=== PATIENT | female | born 1955 | race Caucasian/White ===

== ENCOUNTER 2016-05-16 15:00 | Outpatient (CLI) | payer BC ==
[~2016-05-16] VITALS: Ht 162.6 cm; Wt 104.0 kg
--- OUTSIDE RECORDS SUMMARY | 2016-05-16 15:05 | XMS REPORT ---
Author Ivette Vidales Organization [facility] Address [address] [place] [id number] Care Team Providers Care Labor Employment Associate Name Role Phone Ivette Kay PCP Unavailable Allergies and Adverse Reactions Name Reaction Notes NO KNOWN DRUG ALLERGIES Plan of Treatment Planned Activity Comments Planned Date Planned Time Plan/Goal COMPLETE CBC W/AUTO DIFF WBC 02/19/2015 12:00 AM COMPREHEN METABOLIC PANEL 02/19/2015 12:00 AM LIPID PANEL 02/19/2015 12:00 AM CYTOPATH TBS C/V MANUAL 10/02/2012 12:00 AM MAMMOGRAM BOTH BREASTS 10/02/2012 12:00 AM X-RAY EXAM OF ANKLE 09/18/2013 12:00 AM ELECTROCARDIOGRAM COMPLETE 01/09/2014 12:00 AM Medications Active Name Start Date Estimated Completion Date SIG Comments naproxen 500 mg oral tablet take 1 tablet (500 mg) by oral route 2 times per day with food for 30 days Celebrex 200 mg oral capsule citalopram 20 mg oral tablet 04/16/2014 TAKE 1 TABLET BY MOUTH ONCE DAILY citalopram 20 mg oral tablet 09/05/2014 TAKE 1 TABLET BY MOUTH ONCE DAILY [place] 5-325 mg oral tablet Protonix 40 mg oral tablet,delayed release (DR/EC) take 1 tablet (40 mg ) by oral route once daily gabapentin 300 mg oral capsule take 1 capsule by oral route once a day ( at bedtime) bupropion HCl 300 mg oral tablet extended release 24 hr 02/19/2015 TAKE 1 TABLET BY MOUTH ONCE DAILY citalopram 20 mg oral tablet 02/19/2015 02/14/2016 TAKE 1 TABLET BY MOUTH ONCE DAILY lisinopril-hydrochlorothiazide 10-12.5 mg oral tablet 02/19/2015 02/14/2016 TAKE 1 TABLET BY MOUTH EVERY DAY Aspir-81 81 mg oral tablet,delayed release (DR/EC) take 1 tablet (81 mg ) by oral route once daily Imitrex 50 mg oral tablet 05/06/2015 take 1 tablet (50 mg) by oral route once with fluids as early as possible after the onset of a migraine attack;may repeat after 2 hours if headache returns, not to exceed 200mg in 24hrs propranolol 80 mg oral tablet take 1 tablet (80 mg) by oral route 2 times per day Name Start Date Expiration Date SIG Comments 16.2-0.1037 -0.0194 mg oral tablet 04/06/2011 07/05/2011 take 1 tablet by oral route 3 times a day as needed for 30 days Vesicare 10 mg oral tablet 04/11/2011 08/09/2011 take 1 tablet (10 mg) by oral route once daily for 30 days lisinopril-hydrochlorothiazide 10-12.5 mg oral tablet 10/02/2012 09/27/2013 take 1 tablet by oral route once daily for 30 days phentermine 37.5 mg oral tablet 01/10/2013 02/09/2013 take 1 tablet (37.5 mg ) by oral route once daily before breakfast for 30 days valacyclovir 1 gram oral tablet 08/16/2013 08/23/2013 take 1 tablet (1,000 mg ) by oral route 3 times per day for 7 days nystatin-triamcinolone 100,000-0.1 unit/g-% topical cream 11/21/20132013 apply to the affected area(s) by topical route 2 times per day in the morning and evening for 10 days Diflucan 150 mg oral tablet 11/21/2013 11/22/2013 take 1 tablet (150 mg) by oral route once for 1 day Wellbutrin XL 300 mg oral tablet extended release 24 hr 01/09/2014 01/04/2015 take 1 tablet (300 mg) by oral route once daily for 90 days Discontinued Name Start Date Discontinued Date SIG Comments gentamicin 0.3 % ophthalmic drops 03/31/2011 10/02/2012 instill 1 drop into affected eye(s) by ophthalmic route every 4 hours Bentyl 10 mg oral capsule 04/06/2011 04/06/2011 take 1 capsule (10 mg) by oral route 4 times per day for 30 days Flexeril 10 mg oral tablet 11/27/2012 02/19/2015 take 1 tablet by mouth daily at HS Viibryd 40 mg oral tablet 11/28/2012 01/09/2014 take 1 tablet (40 mg) by oral route once daily with food Celexa 20 mg oral tablet 01/09/2014 02/19/2015 take 1 tablet (20 mg) by oral route once daily Xanax 0.5 mg oral tablet 03/05/2014 02/19/2015 take 1 tablet by mouth daily as needed nystatin-triamcinolone 100,000-0.1 unit/g-% topical cream 07/24/20142014 apply to the affected area(s) by topical route 2 times per day in the morning and evening Problem List Description Status Onset Arthritis unspecified Active Mitral valve prolapse Active Hypertension Active Anxiety Active 01/09/2014 Osteoarthritis Active 01/09/2014 Depression Active 01/09/2014 Vital Signs Date Time BP-Sys(mm[Hg] BP-Inga(mm[Hg]) HR(bpm) RR(rpm) Temp WT HT HC BMI BSA BMI Percentile O2 Sat(%) 05/06/2015 10:17:00 AM 122 mmHg 70 mmHg 50 bpm 18 rpm 97.4 F 243.125 lbs 63 in 43.07 kg/m2 2.21 m2 94 % 02/19/2015 3:18:00 PM 124 mmHg 68 mmHg 62 bpm 18 rpm 97.5 F 242 lbs 63 in 42.8679 kg/m 2.2089 m 97 % 01/09/2014 3:13:00 PM 122 mmHg 64 mmHg 77 bpm 18 rpm 98 F 225.5 lbs 63 in 39.95 kg/m2 2.13 m2 98 % 09/24/2013 2:11:00 PM 104 mmHg 78 mmHg 90 bpm 18 rpm 97.6 F 222.25 lbs 63 in 39.3694 kg/m 2.1169 m 94 % 09/20/2013 2:46:00 PM 110 mmHg 70 mmHg 85 bpm 16 rpm 97.5 F 220 lbs 63 in 38.97 kg/m2 2.11 m2 98 % 09/18/2013 5:21:00 PM 130 mmHg 88 mmHg 85 bpm 18 rpm 98 F 222.375 lbs 63 in 39.3916 kg/m 2.1174 m 99 % 08/06/2013 3:32:00 PM 122 mmHg 76 mmHg 76 bpm 22 rpm 97.1 F 226.187 lbs 64 in 38.82 kg/m2 2.15 m2 94 % 01/10/2013 4:19:00 PM 130 mmHg 68 mmHg 91 bpm 20 rpm 97.5 F 228 lbs 64 in 39.1357 kg/m 2.161 m 96 % 11/27/2012 3:08:00 PM 132 mmHg 70 mmHg 89 bpm 18 rpm 98.2 F 223.187 lbs 64 in 38.31 kg/m2 2.14 m2 96 % 10/02/2012 3:29:00 PM 134 mmHg 68 mmHg 77 bpm 18 rpm 97.4 F 232.125 lbs 64 in 39.8438 kg/m 2.1805 m 97 % 04/06/2011 8:27:00 AM 132 mmHg 68 mmHg 66 bpm 18 rpm 97.7 F 232.187 lbs 64 in 39.85 kg/m2 2.18 m2 03/31/2011 1:49:00 PM 138 mmHg 72 mmHg 68 bpm 18 rpm 98.1 F 232.5 lbs 64 in 39.9081 kg/m 2.1822 m Social History Name Description Comments Tobacco Former smoker 1987 Alcohol Use - Rare Grown Children 2 Lives with spouse History of Procedures Date Ordered Description Order Status 02/19/2015 12:00 AM MAMMOGRAM BOTH BREASTS Returned 03/31/2011 12:00 AM COMPLETE CBC W/AUTO DIFF WBC Reviewed 03/31/2011 12:00 AM COMPREHEN METABOLIC PANEL Reviewed 03/31/2011 12:00 AM LIPID PANEL Reviewed 03/31/2011 12:00 AM ASSAY THYROID STIM HORMONE Reviewed 03/31/2011 12:00 AM ASSAY OF GONADOTROPIN (FSH) Reviewed 10/02/2012 12:00 AM COMPLETE CBC W/AUTO DIFF WBC Returned 10/02/2012 12:00 AM COMPREHEN METABOLIC PANEL Returned 10/02/2012 12:00 AM LIPID PANEL Returned 10/02/2012 12:00 AM MAMMOGRAM SCREENING Returned 09/24/2013 12:00 AM MRI LOWER EXTREMITY W/O DYE Returned 01/09/2014 12:00 AM COMPLETE CBC W/AUTO DIFF WBC Returned 01/09/2014 12:00 AM COMPREHEN METABOLIC PANEL Returned 01/09/2014 12:00 AM LIPID PANEL Returned 01/09/2014 12:00 AM ASSAY THYROID STIM HORMONE Returned 01/09/2014 12:00 AM ASSAY OF TROPONIN QUANT Returned 01/09/2014 12:00 AM ASSAY IGA/IGD/IGG/IGM EACH Returned 01/09/2014 12:00 AM IMMUNOASSAY NONANTIBODY Returned 01/09/2014 12:00 AM MAMMOGRAM BOTH BREASTS Returned 01/09/2014 12:00 AM HT MUSCLE IMAGE PLANAR SING Returned Results Summary Data and Description Results 04/01/2011 8:15 AM FSH 37.30 mIU/mLTSH 1.480 uIU/mLTRIGLYCERIDES 118.0 mg/ dLCHOLESTEROL 173.0 mg/dLHDL 43.0 mg/dLLDL (CALC) 106.0 mg/dLGLUCOSE 103.0 mg/ dLSODIUM 141.0 mmol/LPOTASSIUM 4.40 mmol/LCHLORIDE 108.0 mmol/LCO2 27.0 mmol/ LBUN 24.0 mg/dLCREATININE 0.70 mg/dLSGOT/AST 13.0 IU/LSGPT/ALT 17.0 IU/LALK PHOS 94.0 IU/LTOTAL PROTEIN 6.80 g/dLALBUMIN 4.0 g/dLTOTAL BILI 0.40 mg/ dLCALCIUM 9.10 mg/dLeGFR >60 mL/min/1.73 m2WBC 6.1 RBC 4.53 HGB 12.80 g/dLHCT 40.80 %MCV 90.0 fLMCH 28.30 pgMCHC 31.40 g/dLRDW CV 14.60 %MPV 10.60 fLPLT 245 % NEUT 49.10 %%LYMP 37.30 %%MONO 7.60 %%EOS 5.0 %%BASO 1.0 %#NEUT 2.98 #LYMP 2.26 #MONO 0.46 #EOS 0.30 #BASO 0.06 10/12/2012 7:25 AM GLUCOSE 111.0 mg/dLSODIUM 141.0 mmol/LPOTASSIUM 4.30 mmol/ LCHLORIDE 105.0 mmol/LCO2 28.0 mmol/LBUN 15.0 mg/dLCREATININE 0.80 mg/dLSGOT/ AST 15.0 IU/LSGPT/ALT 21.0 IU/LALK PHOS 92.0 IU/LTOTAL PROTEIN 7.20 g/dLALBUMIN 3.80 g/dLTOTAL BILI 0.40 mg/dLCALCIUM 9.70 mg/dLeGFR 60 TRIGLYCERIDES 88.0 mg/ dLCHOLESTEROL 172.0 mg/dLHDL 47.0 mg/dLLDL (CALC) 107.0 mg/dLWBC 7.2 RBC 4.41 HGB 12.70 g/dLHCT 39.30 %MCV 89.0 fLMCH 28.80 pgMCHC 32.30 g/dLRDW CV 14.90 % MPV 10.0 fLPLT 235 %NEUT 51.90 %%LYMP 37.70 %%MONO 6.50 %%EOS 3.30 %%BASO 0.60 % #NEUT 3.75 #LYMP 2.72 #MONO 0.47 #EOS 0.24 #BASO 0.04 01/10/2014 7:55 AM WBC 6.5 RBC 4.52 HGB 13.0 g/dLHCT 40.80 %MCV 90.0 fLMCH 28.80 pgMCHC 31.90 g/dLRDW CV 14.40 %MPV 10.20 fLPLT 249 %NEUT 54.20 %%LYMP 34.30 %%MONO 8.0 %%EOS 2.90 %%BASO 0.60 %#NEUT 3.54 #LYMP 2.24 #MONO 0.52 #EOS 0.19 #BASO 0.04 GLUCOSE 100.0 mg/dLSODIUM 141.0 mmol/LPOTASSIUM 4.20 mmol/ LCHLORIDE 106.0 mmol/LCO2 25.0 mmol/LBUN 15.0 mg/dLCREATININE 0.80 mg/dLSGOT/ AST 15.0 IU/LSGPT/ALT 20.0 IU/LALK PHOS 86.0 IU/LTOTAL PROTEIN 7.10 g/dLALBUMIN 4.0 g/dLTOTAL BILI 0.50 mg/dLCALCIUM 9.30 mg/dLeGFR 60 TRIGLYCERIDES 60.0 mg/ dLCHOLESTEROL 169.0 mg/dLHDL 49.0 mg/dLLDL (CALC) 108.0 mg/dLTROPONIN-I AD < 0.04 ng/mLTSH 1.530 uIU/mLDeamidated Gliadin Abs,IgA 9 UnitsDeamidated Gliadin Abs,IgG 5 Unitst-Transglutaminase (tTG)IgA <2 U/outbound sales advisor-Transglutaminase (tTG)IgG 2.0 U/mLEndomysial Antibody IgA Negative Immunoglobulin A, Qn,Serum 201.0 mg/dL 04/20/2015 10:45 AM GLUCOSE 103.0 mg/dLSODIUM 142.0 mmol/LPOTASSIUM 4.30 mmol/ LCHLORIDE 107.0 mmol/LCO2 27.0 mmol/LBUN 18.0 mg/dLCREATININE 0.80 mg/dLSGOT/ AST 16.0 IU/LSGPT/ALT 22.0 IU/LALK PHOS 84.0 IU/LTOTAL PROTEIN 6.60 g/dLALBUMIN 4.10 g/dLTOTAL BILI 0.30 mg/dLCALCIUM 9.50 mg/dLeGFR >60 mL/min/1.73mWBC 7.1 RBC 4.37 HGB 12.60 g/dLHCT 40.40 %MCV 92.0 fLMCH 28.80 pgMCHC 31.20 g/dLRDW CV 14.50 %MPV 10.50 fLPLT 258 %NEUT 59.50 %%LYMP 29.20 %%MONO 7.50 %%EOS 3.10 %% BASO 0.70 %#NEUT 4.20 #LYMP 2.06 #MONO 0.53 #EOS 0.22 #BASO 0.05 05/05/2015 12:45 PM GLUCOSE 97.0 mg/dLSODIUM 141.0 mmol/LPOTASSIUM 4.20 mmol/ LCHLORIDE 99.0 mmol/LCO2 32.0 mmol/LBUN 13.0 mg/dLCREATININE 0.70 mg/dLCALCIUM 9.50 mg/dLeGFR >60 mL/min/1.73m History Of Immunizations Not available. History of Past Illness Name Date of Onset Comments Hypertension Mitral valve prolapse Arthritis unspecified Anxiety 01/09/2014 Osteoarthritis 01/09/2014 Depression 01/09/2014 Hypertension Mar 31 2011 1:51PM Osteoarthritis Mar 31 2011 1:51PM Depression Mar 31 2011 1:51PM Overactive bladder Mar 31 2011 1:51PM Fatigue Mar 31 2011 1:51PM Left Conjunctivitis Mar 31 2011 1:51PM Screening Examination for Breast Cancer Apr 06 2011 8:28AM Routine gynecological examination Oct 02 2012 3:32PM Hypertension Oct 02 2012 3:32PM Screening Mammogram Oct 02 2012 3:56PM Body Mass Index [BMI]; body mass index between 30-39, adult; body mass index 38.0-38.9, adult Nov 27 2012 3:11PM Anxiety Disorder Nov 27 2012 3:11PM Myalgia Nov 27 2012 3:11PM Bilateral knee pain Jan 10 2013 4:21PM Anxiety Aug 06 2013 3:40PM Shingles (excluding eye) Aug 06 2013 3:40PM Ankle pain Sep 18 2013 4:44PM Ankle pain, right Sep 24 2013 2:17PM Ankle injury, right, initial encounter Sep 18 2013 5:25PM Ankle injury, left, subsequent encounter Sep 20 2013 2:49PM Ankle injury, left, subsequent encounter Sep 24 2013 2:17PM Chest pain Jan 09 2014 3:16PM Hypertension Jan 09 2014 3:16PM Diarrhea Jan 09 2014 3:16PM Anxiety Jan 09 2014 3:16PM Fatigue Jan 09 2014 3:16PM Osteoarthritis Jan 09 2014 3:16PM Depression Jan 09 2014 3:16PM Breast cancer screening Jan 09 2014 3:16PM Anxiety Feb 19 2015 3:21PM Depression Feb 19 2015 3:21PM Osteoarthritis Feb 19 2015 3:21PM Hypertension Feb 19 2015 3:21PM Screening for breast cancer Feb 19 2015 3:21PM Migraine without aura and without status migrainosus, not intractable May 06 2015 10:20AM Payers Insurance Name Company Name Plan Name Plan Number Policy Number Policy Group Number Start Date BCBS Bcbs [facility] [id number] Wednesday, 2008 [employer] [id number] N/A History of Encounters Visit Date Visit Type Provider 05/06/2015 Office visit Ivette Kay TOOL GRINDING TECHNICIAN 04/30/2015 [facility] Irene Rivera MD 02/19/2015 Office visit 02/19/2015 Office visit Ivette Kay TOOL GRINDING TECHNICIAN 01/10/2014 [facility] Becerra MD 01/09/2014 Office visit 01/09/2014 Office visit Ivette Kay TOOL GRINDING TECHNICIAN 09/24/2013 Office visit Eran Cheatham TOOL GRINDING TECHNICIAN 09/20/2013 Office visit Eran Cheatham TOOL GRINDING TECHNICIAN 09/18/2013 Office visit Eran Cheatham TOOL GRINDING TECHNICIAN 08/06/2013 Office visit Eran Cheatham TOOL GRINDING TECHNICIAN 08/06/2013 Voided Ivette Kay TOOL GRINDING TECHNICIAN 01/10/2013 Office visit Ivette Kay TOOL GRINDING TECHNICIAN 11/27/2012 Office visit Ivette Kay APRN 10/02/2012 Office visit Ivette Kay TOOL GRINDING TECHNICIAN 01/02/2012 [facility] Becerra MD 04/06/2011 Office visit Ivette Kay APRN 03/31/2011 Office visit Ivette Kay TOOL GRINDING TECHNICIAN
[2016-05-16] MEDS ORDERED: CITA20TA7 PO (15:13)
[2016-05-16] MEDS ORDERED: BUPR300T51 PO (15:13)
[2016-05-16] MEDS ORDERED: CELE200C PO (15:13)
[2016-05-16] MEDS ORDERED: GABA-488 PO (15:13)
[2016-05-16] MEDS ORDERED: ALPR0.5T7 PO (15:13)
[2016-05-16] MEDS ORDERED: HYDR-3812 PO (15:13)
[2016-05-16] MEDS ORDERED: PANT40TA3 PO (15:13)
[2016-05-16] MEDS ORDERED: LISI1TAB8 PO (15:13)
[2016-05-16 15:18] VITALS: BP 134/81
[2016-05-16 15:48] LABS: BASOPHILS % (AUTO) 0 % (0-10); EOSINOPHILS # (AUTO) 0.1 10^3/uL (0.0-0.3); EOSINOPHILS % (AUTO) 2 % (0-10); LYMPHOCYTES # (AUTO) 1.6 X 10^3 (1.0-4.0); LYMPHOCYTES % (AUTO) 23 % (12-44); MEAN CORPUSCULAR HEMOGLOBIN 29 PG (25-34); MEAN CORPUSCULAR HGB CONC 32 G/DL (32-36); MEAN CORPUSCULAR VOLUME 88 FL (80-99); MEAN PLATELET VOLUME 11.4 FL (7.4-10.4); MONOCYTES # (AUTO) 0.7 X 10^3 (0.0-1.0); MONOCYTES % (AUTO) 10 % (0-12); NEUTROPHILS # (AUTO) 4.3 X 10^3 (1.8-7.8); NEUTROPHILS % (AUTO) 65 % (42-75); PLATELET COUNT 200 10^3/uL (130-400); RED BLOOD COUNT 4.69 10^6/uL (4.35-5.85); RED CELL DISTRIBUTION WIDTH 14.7 % (10.0-14.5); WHITE BLOOD COUNT 6.7 10^3/uL (4.3-11.0)
== END 2016-05-16 16:00 | disposition home or self-care (01) ==
LOC: PREOP 15:00
PROVIDERS: ATTEND Surgery Pediatric Surgery
DX: Z01.812 Encounter for preprocedural laboratory examination (principal); Z11.2 Encounter for screening for other bacterial diseases; E66.01 Morbid (severe) obesity due to excess calories; Z68.39 Body mass index [BMI] 39.0-39.9, adult
CPT/HCPCS: 36415; 85025; 87081

== ENCOUNTER 2016-05-19 06:58 | Day surgery (SDC) | payer SELFPAY ==
[~2016-05-19] VITALS: Ht 162.6 cm; Wt 104.0 kg
[~2016-05-19 06:58] MED LIST: ALPR0.5T7 PO; BUPR300T51 PO; CELE200C PO; CITA20TA7 PO; GABA-488 PO; HYDR-3812 PO; LISI1TAB8 PO; PANT40TA3 PO
[2016-05-19] MEDS ORDERED: BUP/EPI 0.5% 1:200,000 (SENSORCAINE) 30 ML VIAL ONE (07:08)
[2016-05-19] MEDS: LACTATED RINGERS 1,000 ML IV PRN ×2 (07:27→09:27)
[2016-05-19] MEDS ORDERED: LIDOCAINE PF 2% 10 ML (XYLOCAINE) AMP ONE (07:29)
[2016-05-19] MEDS ORDERED: SEVOFLURANE (ULTANE) 15 ML INHAL SOLN ONE ×2 (07:29→09:57)
[2016-05-19] MEDS ORDERED: fentaNYL INJECTION 250 MCG/5 ML AMP ONE (07:29)
[2016-05-19] MEDS ORDERED: ROCURONIUM 50 MG/5 ML (ZEMURON) VIAL IV ONE (07:29)
[2016-05-19] MEDS ORDERED: proPOfol 200 MG/20 ML (DIPRIVAN) VIAL IV ONE (07:29)
[2016-05-19] MEDS ORDERED: DEXAMETHASONE PF 10 MG/ML (DECADRON) VIAL ONE (07:29)
[2016-05-19] MEDS ORDERED: CATHETER FLUSH 10 ML SYR IV PRN (07:30)
[2016-05-19] MEDS ORDERED: ceFAZolin 1,000 MG (ANCEF) VIAL ONE (07:30)
[2016-05-19] MEDS ORDERED: FAMOTIDINE 20MG/2ML IV (PEPCID) IV ONE (07:30)
[2016-05-19] MEDS ORDERED: ceFAZolin 1 GM/NS 50 ML IVPB IV ONE ×2 (07:30)
[2016-05-19] MEDS ORDERED: MIDAZOLAM 2 MG/2 ML (VERSED) VIAL IV ONE (07:30)
[2016-05-19] MEDS ORDERED: SCOPOLAMINE 1.5 MG (TRANSDERM-SCOP) PATCH TOP ONE (07:30)
[2016-05-19] MEDS ORDERED: ONDANSETRON 4 MG/2 ML (SDV) Z0FRAN IV PRN (07:30)
[2016-05-19] MEDS ORDERED: NS (IVPB) 50 ML ONE (07:31)
--- NOTE | 2016-05-19 07:47 | Progress Note-Pre Operative ---
Pre-Operative Progress Note H&P Reviewed The H&P was reviewed, patient examined and no changes noted. Date H&P Reviewed: May 19, 2016 Time H&P Reviewed: 07:40 Pre-Operative Diagnosis: Morbid obesity, Hypertension KATIE KENNEDY APRN May 19, 2016 7:47 am
[2016-05-19 07:55] VITALS: BP 136/83
[2016-05-19] MEDS ORDERED: MIDAZOLAM 2 MG/2 ML (VERSED) VIAL ONE (08:11)
[2016-05-19] MEDS ORDERED: LACTATED RINGERS 1,000 ML IV ONE (08:46)
[2016-05-19] MEDS ORDERED: NEOSTIGMINE (BLOXIVERZ ) 1 MG/1ML 10 ML VIAL ONE (09:48)
[2016-05-19] MEDS ORDERED: GLYCOPYRROLATE 0.2 MG/ML (ROBINUL) 2 ML VIAL ONE ×2 (09:48→09:52)
--- NOTE | 2016-05-19 10:04 | Progress Note-Post Operative ---
Post-Operative Progess Note Human Resources Office Assistant jen magallon [employer] Pre-Operative Diagnosis Morbid obesity, Hypertension Post-Operative Diagnosis same Post-Op Procedure Note Date of Procedure: May 19, 2016 Name of Procedure: laparoscopic gastric sleeve resection Anesthesia Type GET Estimated blood loss (mL): minimal Specimen(s) collected stomach PENNY CORDOVA MD May 19, 2016 10:04 am
[2016-05-19] MEDS ORDERED: metroNIDAZOLE 500MG/100ML IVPB 100 ML IV SCH (10:15)
[2016-05-19] MEDS ORDERED: oxyCODONE 20 MG/1 ML ORAL CONC (RoxiCODONE) CHARGE PER 1 ML PO PRN (10:15)
[2016-05-19] MEDS ORDERED: diphenhydrAMINE 25 MG TAB (BENADRYL) PO PRN (10:15)
[2016-05-19] MEDS ORDERED: diphenhydrAMINE 50 MG/ML INJ (BENADRYL) IVP PRN (10:15)
[2016-05-19] MEDS ORDERED: fentaNYL INJECTION 5,000 MCG in NS (IVPB) 0 ML IV SCH (10:15)
[2016-05-19] MEDS ORDERED: PROMETHAZINE INJ 25 MG/ML (PHENERGAN) AMP IVP PRN (10:30)
[2016-05-19] MEDS ORDERED: morphine INJ 10 MG/ML 1ML (SYR OR VIAL) IVP PRN (10:30)
[2016-05-19] MEDS: RT-ALBUTEROL SULF 2.5 MG/3 ML PRE-MIX VIAL INH SCH ×4 (10:30→21:30)
[2016-05-19] MEDS ORDERED: MEPERIDINE (DEMEROL) INJ 50 MG/ML IVP PRN (10:30)
[2016-05-19] MEDS ORDERED: HYDROmorphone (DILAUDID) 2 MG/ML VIAL IVP PRN (10:30)
[2016-05-19] MEDS ORDERED: PROMETHAZINE INJ 25 MG/ML (PHENERGAN) AMP ONE (10:53)
[2016-05-19 11:15] VITALS: BP 136/83
[2016-05-19] MEDS ORDERED: fentaNYL PCA 300 MCG/30 ML VIAL IV PRN (11:45)
[2016-05-19] MEDS: ONDANSETRON 4 MG/2 ML (SDV) Z0FRAN IVP SCH ×3 (12:14→23:59)
[2016-05-19] MEDS: LACTATED RINGERS 1,000 ML IV SCH ×3 (12:14→20:26)
[2016-05-19] MEDS: METOCLOPRAMIDE INJ 10 MG/2 ML (REGLAN) IVP SCH ×3 (12:26→23:59)
[2016-05-19] MEDS ORDERED: ONDN4T PO (13:19)
[2016-05-19] MEDS ORDERED: LISI1TAB6 PO (13:19)
[2016-05-19] MEDS ORDERED: SUMA50TA2 PO (13:21)
[2016-05-19] MEDS: metroNIDAZOLE 500MG/100ML IVPB 100 ML IV SCH ×2 (13:34→20:26)
[2016-05-19] MEDS ORDERED: ceFAZolin 2 GM/50 ML NS 50 ML IV SCH (14:00)
[2016-05-19 16:00] VITALS: BP_SYST 130; BP_SYST 132; BP_DIAS 70; BP_DIAS 76
[2016-05-19] MEDS: ceFAZolin 2 GM/50 ML NS 50 ML IV SCH ×2 (16:14→21:40)
[2016-05-19 19:30] VITALS: BP 146/76
[2016-05-19] MEDS: ENOXAPARIN 30 MG/0.3 ML (LOVENOX) SYR SC SCH (20:26)
[2016-05-19] MEDS: PANTOPRAZOLE 40 MG/10 ML (PROTONIX) VIAL IV SCH (20:26)
[2016-05-20 00:12] VITALS: BP 158/93
[2016-05-20] MEDS: RT-ALBUTEROL SULF 2.5 MG/3 ML PRE-MIX VIAL INH SCH ×4 (03:11→14:45)
[2016-05-20] MEDS: LACTATED RINGERS 1,000 ML IV SCH (03:59)
[2016-05-20] MEDS: metroNIDAZOLE 500MG/100ML IVPB 100 ML IV SCH (03:59)
[2016-05-20 04:40] VITALS: BP 139/71
[2016-05-20] MEDS: ONDANSETRON 4 MG/2 ML (SDV) Z0FRAN IVP SCH (05:41)
[2016-05-20] MEDS: ceFAZolin 2 GM/50 ML NS 50 ML IV SCH (05:41)
[2016-05-20] MEDS: METOCLOPRAMIDE INJ 10 MG/2 ML (REGLAN) IVP SCH (05:41)
[2016-05-20 05:57] LABS: MEAN PLATELET VOLUME 11.1 FL (7.4-10.4); RED BLOOD COUNT 3.93 10^6/uL (4.35-5.85); RED CELL DISTRIBUTION WIDTH 14.9 % (10.0-14.5)
[2016-05-20 06:19] LABS: ANION GAP 10 MMOL/L (5-14); BLOOD UREA NITROGEN 10 MG/DL (7-18); BUN/CREATININE RATIO 14; CALCIUM 8.8 MG/DL (8.5-10.1); CARBON DIOXIDE 23 MMOL/L (21-32); CHLORIDE 109 MMOL/L (98-107); GFR ESTIMATED > 60; GLUCOSE 104 MG/DL (70-105); POTASSIUM 3.5 MMOL/L (3.6-5.0); SODIUM 142 MMOL/L (135-145)
[2016-05-20 08:00] VITALS: BP 137/74
--- NOTE | 2016-05-20 09:44 | Anesthesia-General Post-Op ---
General Patient Condition Mental Status/LOC: Same as Preop Cardiovascular: Satisfactory Nausea/Vomiting: Absent Respiratory: Satisfactory Pain: Controlled Complications: Absent Post Op Complications Complications None Follow Up Care/Instructions Patient Instructions None needed. Anesthesia/Patient Condition Patient Condition Patient is doing well, no complaints, stable vital signs, no apparent adverse anesthesia problems. No complications reported per nursing. D/C home per [facility] Criteria: No MARIBELL JIMENEZ CRNA May 20, 2016 09:44
--- NOTE | 2016-05-20 10:11 | Discharge Inst-Surgical ---
D/C Lap Instructions-ART Follow Up Appt in 2 weeks Activity as tolerated No driving for 24 hours No [address] while on pain medications Incentive Spirometry use every 2 hours while awake Phase 1 clear liquid diet next 2 weeks. Symptoms to Report: Fever over 101 degree F, Nausea/Vomiting Infection Signs and Symptoms to report: Increased redness, Foul odor of wound, Increased drainage Bathing instructions: May shower Operative Area Clean/Dry; Keep incision clean/dry If any problems/questions: Contact your physician or go to Emergency Room PENNY CORDOVA MD May 20, 2016 10:11 am
[2016-05-20] MEDS ORDERED: ONDANSETRON 4 MG/2 ML (SDV) Z0FRAN IVP PRN (10:15)
[2016-05-20] MEDS ORDERED: METOCLOPRAMIDE INJ 10 MG/2 ML (REGLAN) IVP PRN (10:15)
[2016-05-20] MEDS: ENOXAPARIN 30 MG/0.3 ML (LOVENOX) SYR SC SCH (10:33)
[2016-05-20] MEDS: PANTOPRAZOLE 40 MG/10 ML (PROTONIX) VIAL IV SCH (10:33)
--- NOTE | 2016-05-20 11:01 | Progress Note (SOAP) ---
Subjective Subjective/Events-last exam doing well, still weening Oxygen. pain controlled. no vomiting. Objective Exam Vital Signs Date Time Temp Pulse Resp B/P Pulse Ox O2 Delivery O2 Flow Rate FiO2 05/20/16 07:42 96 4.00 05/20/16 04:40 99.5 82 20 139/71 97 Nasal Cannula 4.00 05/20/16 04:03 19 05/20/16 03:11 96 4.00 05/20/16 02:04 100.0 05/20/16 01:22 100.2 05/20/16 00:12 73 19 158/93 93 Room Air 05/19/16 21:30 96 4.00 05/19/16 20:25 Nasal Cannula 2.00 05/19/16 19:30 98.9 62 18 146/76 93 Room Air 05/19/16 16:00 97.9 71 20 132/76 97 Room Air 05/19/16 16:00 97.9 69 18 130/70 96 Room Air 05/19/16 14:27 4.00 05/19/16 11:15 97.3 79 18 136/83 96 Nasal Cannula 2.00 I & O 05/20/16 07:00 Intake Total 4400 ml Balance 4400 ml Capillary Refill : General Appearance: No Apparent Distress HEENT: PERRL/EOMI Neck: Full Range of Motion Respiratory: Lungs Clear Cardiovascular: Regular Rate, Rhythm Gastrointestinal: soft tenderness other (incisions clean/dry) Extremity: Normal Capillary Refill Neurologic/Psychiatric: Alert Oriented x3 Skin: Normal Color Lymphatic: No Adenopathy Results Lab Laboratory Tests 05/20/16 05:50: Anion Gap 10, BUN/Creatinine Ratio 14, Blood Urea Nitrogen 10, Calcium Level 8.8 , Carbon Dioxide Level 23, Chloride Level 109H, Creatinine 0.70, Estimat Glomerular Filtration Rate > 60, Glucose Level 104, Hematocrit 35, Hemoglobin 11.2L, Mean Corpuscular Hemoglobin 29, Mean Corpuscular Hemoglobin Concent 32, Mean Corpuscular Volume 90, Mean Platelet Volume 11.1H, Platelet Count 166, Potassium Level 3.5L, Red Blood Count 3.93L, Red Cell Distribution Width 14.9H, Sodium Level 142, White Blood Count 10.0 Assessment/Plan Assessment/Plan Assess & Plan/Chief Complaint s/p laparoscopic gastric sleeve resection. ambulate and ween O2. start phase 1 clear liquid diet and PO pain meds. home when criteria met. Diagnosis/Problems: Clinical Quality Measures DVT/VTE Risk/Contraindication: Risk Factor Score Per Nursin RFS Level Per Nursing on Admit: 4+=Very High PENNY CORDOVA MD May 20, 2016 11:01
[2016-05-20 12:00] VITALS: BP 153/79
--- NOTE | 2016-05-20 12:02 | OPERATIVE REPORT ---
PROCEDURE PHYSICIAN: PENNY CHENEY DATE OF PROCEDURE: 05/19/2016 ATTENDING PERSONAL CARE HOME ADMINISTRATOR: Ivette Kay APRN. PREOPERATIVE DIAGNOSIS: 1. Morbid obesity. 2. Hypertension. 3. Sleep apnea. POSTOPERATIVE DIAGNOSES: 1. Morbid obesity. 2. Hypertension. 3. Sleep apnea. PROCEDURE: Laparoscopic gastric sleeve resection. SURGEON: Dr. Cheney. FEDERAL JUDGE: Molina Ashford APRN ANESTHESIA: General endotracheal. ESTIMATED BLOOD LOSS: Minimal. FINDINGS: 1. Mild hepatomegaly. 2. Gallbladder appeared normal. DISPOSITION: The patient tolerated procedure well. Ms. Magnolia Larios is a 60-year-old female with morbid obesity who is in our surgical weight loss program for the laparoscopic gastric sleeve resection and meets the medical criteria for bariatric surgery. She began to gain the majority of her adult weight at around age 27 after the of her first child. Since that time she has continued to gradually gain weight. She reports that she has tried diets in the past including weight watcher, Atkins, Slim fast with some success however, would regain the weight back. She has also tried exercise regimens including walking, treadmill, without any success. She has tried medications including Fen/Phen and phentermine again with some however, after discontinuation of medication would regain the weight back. Her medical comorbidities related to obesity include degenerative joint disease, hypertension, gastroesophageal reflux disease, depression, and obstructive sleep apnea. PROCEDURE: The patient was brought to the operating room, laid supine on the table. After adequate IV pain and sedative medications and general endotracheal intubation the abdomen was prepped and draped in standard surgical fashion. 0.5% Marcaine with epinephrine was then used to anesthetize the overlying skin in the left upper abdominal quadrant. A small transverse skin incision made using a 15 blade. An 0 silk suture was applied to the medial aspect of the incision for retraction and a Veress needle inserted with a low opening pressure of 0 mmHg. The abdomen was then insufflated to 15 mmHg pressure and a 5 mm Xcel trocar placed followed by a 5 millimeter, 45 degree angle laparoscope, visualizing the peritoneal cavity. A four-quadrant abdominal exploration was performed. Mild hepatomegaly was identified. The gallbladder appeared normal. Under direct visualization we then proceeded to place a mid abdominal, left of midline 10 mm port after the skin and peritoneum were anesthetized using 0.5% Marcaine with epinephrine and a transverse skin incision made using a 15 blade. In a similar manner, a mid abdominal, right of midline 15 mm port was placed followed by a right upper abdominal quadrant, 5 mm port. An area was then anesthetized in the epigastric region and a small transverse skin incision made using an 11 blade. A tract was then created through the abdominal wall layers using trocar to a 5 mm port and through this opening, a medium size Khoa liver retractor was placed and the left lobe of the liver retracted anteriorly and superiorly. The patient was then placed in steep reverse Trendelenburg position. We then measured the distance from the pylorus along the greater curvature approximately 6 cm and this was marked with a marking pen. We then proceeded to open the gastrocolic ligament next to the stomach using the Sonicision. We first proceeded with inferior dissection until we were approximately 2 cm below our marking with visualization of good hemostasis. We then proceeded cephalad along the greater curvature taking down all the short gastric vessels with a Sonicision with visualization of good hemostasis. We then proceeded to dissect the entire fundus and cardia of the stomach, as well as the posterior stomach behind it using the Sonicision. No hiatal hernia was identified. We then proceeded with our gastric sleeve resection starting 2 cm below our marking using a HAKAN black load 45 mm stapler which was polyglycolic acid loaded. A GastriSail lighted bougie was placed under direct visualization and we used this as our guide. We then proceeded with two 60 mm black load followed by two 60 mm purple loads with visualization of good hemostasis. The staple line corners were then clipped with 5 mm clips. The pylorus was then occluded and saline infused and approximately 75 mL of air were infused with no leak identified. The saline was then suctioned out. Tisseel fibrin glue was then placed onto the staple line and the omentum placed onto the stable line. The liver retractor was then removed. The 15 and 10 mm port site fascia and peritoneum were then closed under direct visualization using a Brandt-Sim device and 0 Vicryl suture. The abdomen was desufflated and remaining ports removed. All skin incisions were closed using 4-0 Monocryl running subcuticular sutures. Wounds were then cleaned and covered with Dermabond. The patient tolerated procedure well. We will admit her 23 hour observation, start IV and oral pain medication including COMMANDING [employer]ER [employer]. We will also proceed with DVT prophylaxis with early ambulation, calf SCDs, as well as Lovenox injections. Tomorrow we will start a phase I clear liquid diet. Once she is tolerating clears, has good pain control with oral pain medication and is ambulating well, we will discharge her home. . Job ID: [id number] Dictated Date: 05/19/2016 10:23:53 Coach Operator Date: 05/20/2016 11:46:48 / juan SALAZAR
[2016-05-20 16:00] VITALS: BP 138/88
== END 2016-05-20 16:00 | disposition home or self-care (01) ==
LOC: SDC 06:58 → 4TH 11:15 → SDC 05-20 16:00
PROVIDERS: ATTEND Surgery Pediatric Surgery
DX: E66.01 Morbid (severe) obesity due to excess calories (principal); Z68.39 Body mass index [BMI] 39.0-39.9, adult; I10 Essential (primary) hypertension; G47.33 Obstructive sleep apnea (adult) (pediatric); R16.0 Hepatomegaly, not elsewhere classified; Z79.899 Other long term (current) drug therapy
CPT/HCPCS: 36415; 80048; 85027; 88305; 94640; 94664; 94760